=== PATIENT | female | born 2005 | race African-American/Black ===

== ENCOUNTER 2025-06-07 21:45 | Emergency (ER) | payer OTHER ==
[~2025-06-07] VITALS: Ht 160 cm; Wt 68.2 kg
[2025-06-07 22:17] VITALS: TEMP 99
[2025-06-07] MEDS: KETOROLAC TROMETHAMINE 30 MG/ML VIAL IM ONE (23:27)
[2025-06-08] MEDS ORDERED: AMOX250C4 PO (00:39)
[2025-06-08 00:53] VITALS: BP 119/60; PULSE 87; RESP 15; O2SAT 98
== END 2025-06-08 01:00 | disposition home or self-care (01) ==
LOC: EMS 21:55
DX: K08.89 Other specified disorders of teeth and supporting structures (principal); R22.0 Localized swelling, mass and lump, head
CPT/HCPCS: 99283; 84703; 96372; J1885